=== PATIENT | male | born 1985 | race Caucasian/White ===

== ENCOUNTER 2017-12-16 19:52 | Emergency (ER) | payer OTHER ==
[2017-12-16 19:57] VITALS: BP 124/73; PULSE 103; TEMP 98; BMI 44.3
--- NOTE | 2017-12-16 21:29 | PDOC ---
History of Present Illness - General History Source: Patient Exam Limitations: No Limitations - History of Present Illness Initial Comments: 12/16/17 21:29 The patient is a 32 year old male with history of brain surgery at age 11 s/p shunt who presents to the ED complaining of 1 day of frontal headache with associated lightheadedness. Lightheadedness is made worse with movement. He also reports nausea that began this evening with one episode of vomiting undigested food. No fever or chills. No chest pain or shortness of breath. No blurred vision or paresthesias. <Miriam Crain - Last Filed: 12/16/17 21:29> <Maritza Oglesby - Last Filed: 12/17/17 04:26> - General Chief Complaint: Lightheaded Stated Complaint: LIGHTHEADED Time Seen by Provider: 12/16/17 19:58 Past History <Miriam Crain - Last Filed: 12/16/17 21:29> - Past Medical History Asthma: Yes (very mild, does not really take any medication for it) CVA: No COPD: No DVT: No Diabetes: No GI Disorders: No Disorders: No HTN: No - Surgical History Appendectomy: Yes Neurologic Surgery: Yes (BRAIN CYST SURGERY X2 IN CHILDHOOD) - Immunization History Immunization Up to Date: No - Suicide/Smoking/Psychosocial Hx Smoking Status: No Smoking History: Current every day smoker Have you smoked in the past 12 months: Yes Number of Cigarettes Smoked Daily: 6 Information on smoking cessation initiated: Yes 'Breaking Loose' booklet given: 12/16/17 Hx Alcohol Use: No Drug/Substance Use Hx: No Substance Use Type: None <Maritza Oglesby - Last Filed: 12/17/17 04:26> - Past Medical History Allergies/Adverse Reactions: Allergies Allergy/AdvReac Type Severity Reaction Status Date / Time No Known Allergies Allergy Verified 08/01/13 20:08 Home Medications: Ambulatory Orders Naproxen [Naprosyn -] 500 mg PO BID PRN #20 tablet 08/01/13 No Home Medications 0 dose .ROUTE UTDICT 08/01/13 Naproxen [Naprosyn -] 250 mg PO BID #14 tablet 01/25/16 Review of Systems - Review of Systems Able to Perform ROS?: Yes Comments:: 12/16/17 21:32 GENERAL/CONSTITUTIONAL: No fever or chills. No weakness. HEAD, EYES, EARS, NOSE AND THROAT: No change in vision. No ear pain or discharge. No sore throat. CARDIOVASCULAR: +Lightheadedness. No chest pain or shortness of breath. RESPIRATORY: No cough, wheezing, or hemoptysis. GASTROINTESTINAL: +Nausea, vomitingx 1. No diarrhea or constipation. GENITOURINARY: No dysuria, frequency, or change in urination. MUSCULOSKELETAL: No joint or muscle swelling or pain. No neck or back pain. SKIN: No rash NEUROLOGIC: +Headache. No loss of consciousness, or change in strength/ sensation. ENDOCRINE: No increased thirst. No abnormal weight change. HEMATOLOGIC/LYMPHATIC: No anemia, easy bleeding, or history of blood clots. ALLERGIC/IMMUNOLOGIC: No hives or skin allergy. <Miriam Crain - Last Filed: 12/16/17 21:29> *Physical Exam - Vital Signs Last Vital Signs Temp Pulse Resp BP Pulse Ox 98 F 103 H 14 124/73 100 12/16/17 19:54 12/16/17 19:54 12/16/17 19:54 12/16/17 19:54 12/16/17 19:54 - Physical Exam Comments: 12/16/17 21:32 GENERAL: Awake, alert, and fully oriented, in no acute distress HEAD: No signs of trauma EYES: PERRLA, EOMI, sclera anicteric, conjunctiva clear ENT: Auricles normal inspection, hearing grossly normal, nares patent, oropharynx clear without exudates. Dry mucous membranes. NECK: Normal ROM, supple, no lymphadenopathy, JVD, or masses LUNGS: Breath sounds equal, clear to auscultation bilaterally. No wheezes, and no crackles HEART: Regular rate and rhythm, normal S1 and S2, no murmurs, rubs or gallops ABDOMEN: Soft, nontender, normoactive bowel sounds. No guarding, no rebound. No masses EXTREMITIES: Normal range of motion, no edema. No clubbing or cyanosis. No cords, erythema, or tenderness NEUROLOGICAL: Lightheadedness reproducible with sitting upright. Cranial nerves II through XII grossly intact. Normal speech, gait deferred. SKIN: Warm, Dry, normal turgor, no rashes or lesions noted. <Miriam Crain - Last Filed: 12/16/17 21:29> - Vital Signs Last Vital Signs Temp Pulse Resp BP Pulse Ox 98 F 103 H 14 124/73 100 12/16/17 19:54 12/16/17 19:54 12/16/17 19:54 12/16/17 19:54 12/16/17 19:54 <Maritza Oglesby - Last Filed: 12/17/17 04:26> ED Treatment Course - LABORATORY CBC & Chemistry Diagram: 12/16/17 21:35 12/16/17 21:35 <Maritza Oglesby - Last Filed: 12/17/17 04:26> Medical Decision Making - Medical Decision Making Documentation has been prepared under my direction and personally reviewed by me in its entirety. I attest that this documented accurately reflects all work, treatment, procedures and medical decision making performed by me. As noted above, this 32-year-old man with a history of craniotomy as a child ( removal of cyst from base of the brain and placement of [employer]PITE [employer]ATOR shunt) but no other significant medical issues presents with headache and lightheadedness for one day. He also had an episode of vomiting one he arrived here. He has not had fever/diarrhea or any other obvious sources of fluid loss. He states that he actively hydrates himself while at work but drinks somewhat less during days off (today is a day off for the patient). Of note, he had finished 24 hours straight of work prior to going home at 7 AM today. Exam as noted; patient has dry mucous membranes but no focal neurologic deficit. His lightheadedness was reproduced with sitting up. Gait testing was deferred Noncontrast head CT performed and was negative for acute intracranial pathology. CBC and chemistry profile notable for BUN of 21 and creatinine of 0.8. Otherwise, electrolytes/liver function tests are normal. CBC shows no abnormalities. Patient received 1 L normal saline and 4 mg Zofran IV Although the patient felt somewhat better after first liter of saline, he had not urinated yet so additional liter of saline was administered IV. After approximately 500 mL of this solution, patient urinated. Lightheadedness was markedly improved and patient felt well enough to walk around the department. Patient was discharged with instructions to continue hydration on all days and to follow-up with his PMD, Dr. Moyer within the next 5-7 days. He should return to the ER if he Has recurrent lightheadedness, persistent headache or vomiting <Maritza Oglesby - Last Filed: 12/17/17 04:26> *DC/Admit/Observation/Transfer - Attestations Scribe Attestion: 12/16/17 21:34 Documentation prepared by Miriam Crain, acting as medical office coordinator for Maritza Oglesby MD. <Miriam Crain - Last Filed: 12/16/17 21:29> <Maritza Oglesby - Last Filed: 12/17/17 04:26> Diagnosis at time of Disposition: Dehydration - Discharge Dispostion Disposition: HOME Condition at time of disposition: Improved - Referrals Referrals: Jay Moyer MD [Primary Care Provider] - 1 week - Patient Instructions Printed Discharge Instructions: Dehydration Additional Instructions: Drink plenty of water Return to ER or see your doctor if you have recurrent dizziness/headache Follow-up with within the next 5-7 days - Post Discharge Activity
[2017-12-16] MEDS ORDERED: SODIUM CHLORIDE 1,000 ML IV STA (21:34)
[2017-12-16 21:53] LABS: BASO % 0.4 % (0-2.0); EOS % 2.1 % (0-4.5); HEMATOCRIT 42.7 % (35.4-49); HEMOGLOBIN 14.7 GM/dl (11.7-16.9); LYMPH % 29.6 % (8-40); MCH 28.3 pg (25.7-33.7); MCHC 34.3 g/dl (32.0-35.9); MEAN CELL VOLUME 82.4 fl (80-96); MEAN PLT VOLUME 8.4 fl (7.5-11.1); MONO % 8.7 % (3.8-10.2); NEUT % 59.2 % (42.8-82.8); PLATELET COUNT 248 K/MM3 (134-434); RBC 5.18 M/mm3 (4.00-5.60); RDW 12.3 % (11.9-15.9); WHITE BLOOD COUNT 9.1 K/mm3 (4.0-10.8)
[2017-12-16 22:05] LABS: ALBUMIN 3.9 g/dl (3.5-5.0); ALK PHOS 81 U/L (32-92); ANION GAP 5 (8-16); BLOOD UREA NITROGEN 21 mg/dl (7-18); CALCIUM 9.4 mg/dl (8.4-10.2); CHLORIDE 104 mmol/L (98-107); CO2 28 mmol/L (22-28); CREATININE 0.8 mg/dl (0.6-1.3); GLUCOSE,RANDOM 104 mg/dl (74-106); POTASSIUM 4.1 mmol/L (3.5-5.1); SGOT/AST 21 U/L (10-42); SGPT/ALT 22 U/L (10-40); SODIUM 137 mmol/L (136-145); TOT PROT 7.1 g/dl (6.4-8.3)
[2017-12-16 22:16] LABS: BILIRUBIN,TOTAL < 0.5 mg/dl (0.2-1.0)
== END 2017-12-16 23:20 | disposition home or self-care (01) ==
LOC: FER 19:52
PROC: 3E0337Z Introduction of Electrolytic and Water Balance Substance into Peripheral Vein, Percutaneous Approach (ICD-10-PCS; principal; 2017-12-16)
DX: E86.0 Dehydration (principal); F17.210 Nicotine dependence, cigarettes, uncomplicated
CPT/HCPCS: 36415; 70450-TC; 80053; 85025; 99284-25